=== PATIENT | female | born 1980 | race Caucasian/White ===

== ENCOUNTER 2024-10-14 11:16 | Outpatient (AMB) | payer OTHER, SELFPAY ==
--- NOTE | 2024-10-14 11:28 | MHC.PC.OV ---
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 Last PCP: [facility]; Marychuy Miller APRN. Last visit/PE 05/2023 Last routine lab work: 3 months ago The patient is a 44-year-old female presenting with the goal of establishing care. She was previously managed by Marychuy Miller at [facility] but has not received records yet despite multiple attempts. She reported her last physical exam was conducted in May of the previous year. Recent lab work was completed at an OBGYN and a wellness clinic named [facility] approximately three months ago, with a full lab panel drawn. No labs are currently required as past samples were thorough. The patient underwent hernia repair and bilateral breast augmentation surgeries in May 2023. Additionally, she is on hormone replacement therapy with Oxandrolone, [facility], taken daily for 30 days with a subsequent break of 30 days. The rest of her medical history disclosed no significant medical history, surgeries or hospitalizations. 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 - Education: Attended [employer] and [employer]. - Substance Use: Denies alcohol consumption and cigarette use; reports marijuana use thrice weekly, mainly for sleep aid. - Exercise & Nutrition: Exercises regularly and follows a healthy diet. - Family: , with a noted mental health history in her mother and a history of alcoholism in her paternal grandfather. Health Maintenance - Mammogram: Last done in May 2023, normal. Future scheduled for early 2024 at [place]. - Pap smear: Conducted approximately one month ago, normal. - Dental exam: Last visit three months ago. - Eye exam: Approximately one year ago, plans to schedule a new exam. - Immunizations: Flu vaccine declined; unclear about last tetanus booster. - She does not want to start colonoscopy until the next 2-3 years. 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 1. Little interest or pleasure in doing things: not at all 2. Feeling down, depressed, or hopeless: not at all 3. Trouble falling or staying asleep, or sleeping too much: not at all 4. Feeling tired or having little energy: not at all 5. Poor appetite or overeating: not at all 6. Feeling bad about yourself - or that you are a failure or have let yourself or your family down: not at all 7. Trouble concentrating on things, such as reading the newspaper or watching television: not at all 8. Moving or speaking so slowly that other people could have noticed. Or the opposite - being so fidgety or restless that you have been moving around a lot more than usual: not at all 9. Thoughts that you would be better off or of hurting yourself in some way: not at all Total score: 0 Depression Screening Interpretation: Negative Depression Screening Done: Yes 33671 - PHQ-9 Billing: Yes Source: Developed by Drs. Jhony Merchant, Ivanna Mcbride, Pawan Marley and colleagues, with an educational federico from [employer]. Thrive Questionnaire Date Thrive assessed: 12/02/24 I am a: Patient What is your living situation today?: I have a steady place to live Within the past 12 months, did the food you bought not last and you didn't have the money to get more?: I choose not to answer this question Within the past 12 months, did you worry whether your food would run out before you got money to buy more?: Never true Do you have trouble paying for medicines?: I choose not to answer this question Do you have trouble getting transportation to medical appointments?: No Do you have trouble paying your heating and electricity bill?: No Do you have trouble taking care of your child, family member or friend?: No Do you have trouble with day-to-day activities such as bathing, preparing meals, shopping, managing finances, etc.?: No Are you currently unemployed and looking for a job?: No Are you interested in more education?: No Please select the resources that you would like help with: Utilities Currently or been in a relationship where the following occur: No concerns reported THRIVE Score: 0 AUDIT C Alcohol Use Questionnaire (AUDIT-C) 1. How often do you have a drink containing alcohol?: Never Total Score: 0 Score Reviewed/Action Taken: Yes DEVAN-7 AMB Questionnaire DEVAN-7 Date DEVAN - 7 assessed: 10/14/24 Feeling nervous, anxious, or on edge: 0 = Not at all Not being able to stop or control worryin = Not at all Worrying too much about different things: 0 = Not at all Trouble relaxin = Not at all Being so restless that it is hard to sit still: 0 = Not at all Becoming easily annoyed or irritable: 0 = Not at all Feeling afraid as if something awful might happen: 0 = Not at all Total DEVAN-7 score (0-4 normal; 5-9 mild; 10-14 moderate; 15-21 severe): 0 Source: Developed by Drs. Jhony Merchant, Ivanna Mcbride, Pawan Marley and colleagues, with an educational federico from [employer]. DEVAN-7 Assessment Billing DEVAN-7 Assessment Tool: DEVAN-7 Assessment 25598 Review of Systems Const Details: Denies chills, Denies fatigue, Denies fever(s), Denies headache(s) and Denies weakness HEENT Denies change in vision, Denies dizziness, Denies headache(s), Denies hearing loss, Denies nasal congestion, Denies sinus pain, Denies sinus pressure and Denies sore throat Card Denies chest pain, Denies lightheadedness, Denies dyspnea and Denies other (palpitations) Resp Denies cough, Denies dyspnea and Denies wheezing GI Denies abdominal pain, Denies melena, Denies hematochezia, Denies change in bowel habits, Denies dyspepsia and Denies nausea Denies hematuria and Denies dysuria Musc Denies abnormal gait, Denies myalgias, Denies arthralgias, Denies numbness and Denies tingling Skin/Breast Denies rash, Denies unusual bruising and Denies wounds Neuro Denies abnormal gait, Denies dizziness, Denies headache(s), Denies memory loss, Denies numbness, Denies Sensory deficit (Neuro), Denies tingling and Denies weakness Psych Denies anxiety, Denies depression and Denies memory loss Endo Denies cold intolerance, Denies fatigue, Denies heat intolerance, Denies polydipsia and Denies polyuria Shahid/Lymph Denies easy bleeding and Denies easy bruising Aller/Immun Denies wheezing Physical exam (Primary Care) Vital Signs: Last Vital Signs Temp 98.8 F 10/14/24 11:36 Pulse 103 H 10/14/24 11:36 Resp 16 10/14/24 11:36 BP 139/81 10/14/24 11:36 Pulse Ox 99 10/14/24 11:36 Oxygen Delivery Method Room Air 10/14/24 11:36 BMI result Body Mass Index 22.2 Tobacco/Smoking Status: Tobacco use Status Tobacco use date assessed 10/14/24 10/14/24 11:40 Patient Tobacco Use Status Never used Tobacco 10/14/24 11:40 e-Cigarette/Vaping Use Never Used 10/14/24 11:40 PHQ-9: PHQ-9 Score PHQ-9: Total score 0 10/14/24 11:31 Depression Screening Interpretation: Negative Thrive Assessment: Date of Thrive Assessment Date Thrive assessed 10/14/24 10/14/24 11:31 Currently or been in a relationship where the following occur: No concerns reported Const Other: General: no acute distress, well developed, alert and awake Nutritional Appearance: well nourished Orientation/consciousness: patient oriented x3 [facility] Head: Yes normocephalic and Yes atraumatic Ears: hearing grossly normal bilaterally and TM's normal bilaterally General nose exam: Normal external nose present and Normal nares present Mouth: Normal oral and palatal mucosa present and moist mucous membranes Teeth and gingiva: dentition normal Throat: Yes oropharynx normal Eyes Pupils: Equal, round and reactive pupils present and Pupil accommodation reflex normal EOM: EOMs intact bilaterally Neck Neck: Yes normal visual inspection, Yes no lymphadenopathy and Yes trachea midline Thyroid: Thyroid normal Carotids: no bruits Lymphatic: no lymphadenopathy noted Chest Chest palpation & inspection: normal inspection of the chest Resp Effort & Inspection: normal respiratory effort Auscultation: clear to auscultation bilaterally Cardio Rate: regular rate Rhythm: regular rhythm Heart sounds: S1 normal heart sound present, S2 normal heart sound present, no gallops, no murmurs and no rubs Bruits: no abdominal aortic bruits and no carotid bruits GI Palpation (GI): No Abdominal aortic bruit present, Soft to palpation, nontender, No hepatosplenomegaly present and No Rebound tenderness present Auscultation: normal bowel sounds General: Yes no CVA tenderness Back/Spine/Pelvis Back: no CVA tenderness Cervical Spine: cervical ROM normal and No Cervical spine tenderness Thoracic/Lumbar Spine: thoraco-lumbar ROM normal, No pain with thoraco-lumbar ROM, No thoracic spinal tenderness and No lumbar spinal tenderness Skin General: warm and dry. Normal skin color. Normal skin turgor Lesions: no lesions Rashes: no rashes Trauma: no lacerations or abrasions Wounds: no wounds Nails: normal Neuro General: patient oriented x3, gait normal and CN's II-XI intact bilaterally Cranial nerves: Yes Equal, round and reactive pupils present Cognition (Neuro): normal cognition Gait exam (Neuro): Normal gait present Motor exam (neuro): 5/5 motor strength present throughout Sensory Exam: No Sensory deficit (Neuro) Deep tendon reflexes (DTR's): Right patellar reflex intensity grade: 2+ and Left patellar reflex intensity grade: 2+ Extrem General: Yes normal to inspection, No edema and No calf tenderness Psych Appearance: grossly normal Affect: normal affect Attitude: cooperative Thought process: Normal thought process present Coding Level of Care Code New Pt Prev Care 40-64y(13427) Diagnoses Normal physical examination, routine Z00.00 Hormone replacement therapy Z79.890 Healthcare maintenance Z00.00 Preventative health care Z00.00 Additional Codes DEVAN-7 Assessment Billing - DEVAN-7 Assessment Tool: DEVAN-7 Assessment 50636 ([id number]) PHQ-9 - 62855 - PHQ-9 Billing: Yes ([id number]) Assessment & Plan Assessment & Plan (1) Normal physical examination, routine: Code(s): Z00.00 - Encounter for general adult medical examination without abnormal findings Category: Medical Plan: No significant functional limitation noted. (2) Hormone replacement therapy: Code(s): Z79.890 - Hormone replacement therapy Category: Medical Plan: Continue current regimen with Oxandrolone as prior prescribed. (3) Healthcare maintenance: Code(s): Z00.00 - Encounter for general adult medical examination without abnormal findings Category: Medical Plan: Obtain past medical records to confirm due dates and results of all recommended screenings, including mammogram and pap smear. (4) Preventative health care: Code(s): Z00.00 - Encounter for general adult medical examination without abnormal findings Category: Medical Plan: Ensure immunizations are up to date once records are reviewed. Plan During the visit, I discussed the importance of transferring her medical records to ensure continuity of care. We addressed the patient?s current use of Oxandrolone, and the results pending from recent lab work. I recommended following the current hormone therapy protocol. We talked about maintaining regular screenings, specifically mammograms and Pap smears, which are up to date and normal. Discussions included her elevated stress levels potentially affecting blood pressure, and I advised monitoring at work for consistency. I encouraged the patient to ensure all health screenings and preventative care measures are maintained at appropriate intervals. Patient Instructions: - Ensure all previous medical records are transferred to our care. - Monitor blood pressure at work regularly due to recent stress. - Maintain regular health screenings, including eye exams and dental visits. - Continue current Oxandrolone regimen as prescribed; submit available lab reports. - Schedule an extended physical exam a year from today or return sooner with symptoms or concerns. Patient was informed and verbally consented to the use of an ambient scribe for clinic note documentation during this visit.
[2024-10-14 11:36] VITALS: BP 139/81; PULSE 103; RESP 16; TEMP 37.1; O2SAT 99; BMI 22.2
== END 2024-10-14 12:01 | disposition home or self-care (01) ==
PROVIDERS: Visit Provider Nurse Practitioner Family
DX: Z00.00 Encounter for general adult medical examination without abnormal findings (principal); Z79.890 Hormone replacement therapy

== ENCOUNTER → 2024-10-14 11:16 | Outpatient (BNVA) | payer OTHER, SELFPAY | PROVIDERS: Visit Provider Nurse Practitioner Family | DX: Z00.00 Encounter for general adult medical examination without abnormal findings (principal); Z79.890 Hormone replacement therapy | CPT/HCPCS: 96127 ==